=== PATIENT | male | born 1950 | race Caucasian/White ===

== ENCOUNTER 2021-02-21 18:11 | Inpatient (IN) ==
[2021-02-21] MEDS ORDERED: SODIUM CHLORIDE 0.9% 1000ML 2,000 ML IV ONE (18:53)
--- NOTE | 2021-02-21 19:02 | Emergency Department Note ---
Impression & Plan Acute hyperglycemia, Acute hyponatremia ED Provider Note NAME: JAGJIT ARRIAZA AGE: 70 SEX: M : 1950 ARRIVES VIA: Walk-In INFORMANT: Patient ED PROVIDER(S): Brent Avelar DO CHIEF COMPLAINT: hyperglycemia HPI: Patient is a 70-year-old male who presents to the ER for elevated blood sugars. Patient notes that this has been peeing more frequently but believes it is just because it is hot out and he was drinking more fluids. Denies any headache or change in vision. No chest pain or shortness of breath. No nausea, vomiting, or diarrhea. Denies any dysuria, urgency, or frequency. ROS: See above HPI for pertinent positives & negatives. A total of 10 systems reviewed and were otherwise negative. PAST MEDICAL HISTORY:See Below PAST SURGICAL HISTORY:See Below FAMILY HISTORY:See Below SOCIAL HISTORY:See Below HOME MEDICATIONS:See Below ALLERGIES:See Below VITALS:See Below PHYSICAL EXAMINATION: GENERAL: Sitting up in bed, alert, well appearing, well nourished, no distress, non-toxic EYE EXAM: normal conjunctiva. OROPHARYNX: no exudate, no erythema, lips, buccal mucosa, and tongue normal and mucous membranes are moist NECK: supple, no nuchal rigidity, no adenopathy, non-tender LUNGS: Clear to auscultation. Normal chest wall mechanics HEART: no murmurs, S1 normal and S2 normal ABDOMEN: abdomen soft, non-tender, normo-active bowel sounds, no masses, no rebound or guarding. UPPER EXTREMITIES: upper extremities are grossly normal. LOWER EXTREMITIES: No pitting edema. NEURO EXAM: Normal sensorium, cranial nerves II-XII grossly intact, normal speech, no gross weakness of arms, no gross weakness of legs. MEDICAL DECISION MAKING: Patient is a 70-year-old male who presents the ER for elevated blood sugar refer red in by PCP. IV was established blood work was obtained. Labs show no significant leukocytosis or anemia. VBG was unremarkable. BMP with a sodium of 125 which is pseudohyponatremia secondary to the hyperglycemia of 700. LFTs and TSH was unremarkable. Lipase is elevated 1500 but no belly pain. UA was clean. Covid was negative. Patient was given 2 L IV fluids as well as 6 units IV insulin. He was placed on insulin drip. He is updated bedside. Discussed with the hospitalist admitted for further work-up. Triage Nursing notes reviewed. Limited review of prior medical records performed Vital Signs: reviewed and remarkable for HTN Differential diagnosis: Infection, dehydration, metabolic abnormality, hypo/hyperglycemia, electrolyte disturbance, anemia, hypoxia, cardiac sources, intracerebral event, toxicologic, neurologic, as well as other pathologies. ER treatment provided: See below Diagnostics interpreted by me: Cardiac Monitoring: An order was placed for continuous cardiac monitoring. The monitor shows a rate of 62 with sinus rhythm. Laboratory studies: As stated above and show below. Imaging studies: See below Consultation(s): Discussed with the hospitalist for further evaluation Procedures: none Critical Care: I have personally spent 33 minutes of critical care time in the direct management of this patient. This includes bedside care, interpretation of diagnostic studies, and testing, discussion with consultants, patient, and family members, and other required patient management activities. This 33 minutes is in excess of all separately billable procedures. Past Med/Surg History Medical History (Updated 02/22/21 @ 00:06 by Brent Avelar DO) Diverticulosis Dyslipidemia Prediabetes Pulmonary nodule Umbilical hernia Surgical History History of dental surgery Hx of appendectomy Family History Sister Cancer Father Mental disorder Social History (Updated 05/10/19 @ 13:50 by Vida Toure) Smoking Status: Current some day smoker Hx Alcohol Use: No Hx Substance Use: No Preferred Language: Sinhala Communication Ability: Effective Respiratory Medicine Physician Required: No Beliefs That Will Affect Care: None Current Living Situation: Alone Other Information That Helps Us Care for You: No Feels Safe at Home: Yes Safety Concerns: Feels Safe At This Time Assistive Devices: None Allergies Allergies Allergy/AdvReac Type Severity Reaction Status Date / Time No Known Allergies Allergy Unverified 02/21/21 20:17 Home Meds Home Medications Medication Instructions Recorded Confirmed aspirin 81 mg tablet,delayed 81 mg PO DAILY 05/10/19 02/21/21 release atorvastatin 10 mg tablet (Lipitor) 10 mg PO DAILY 05/10/19 02/21/21 omega-3 fatty acids 1,000 mg 1,000 mg PO DAILY 05/10/19 02/21/21 capsule nicotine 21 mg/24 hr daily 1 patch TRANSDERMAL DAILY 02/21/21 02/21/21 transdermal patch oxycodone-acetaminophen 5 mg-325 1 tab PO Q6H PRN 02/21/21 02/21/21 mg tablet (Percocet) Previous Rx's Medication Instructions Recorded albuterol sulfate 90 mcg/actuation 2 puff INH Q6H PRN #18 g 01/06/21 aerosol inhaler (ProAir HFA) bupropion HCl 150 mg 24 hr tablet, 150 mg PO BID #60 tab 01/06/21 extended release tiotropium bromide 2.5 2 puff INH DAILY #4 gm 01/06/21 mcg/actuation mist for inhalation (Spiriva Respimat) Results & Data (ED) Vital Signs Vital Signs - 24 hr 02/21/21 18:39 02/21/21 18:59 02/21/21 19:35 Temperature 36.6 C Temperature Source Skin Pulse Rate 72 Pulse Rate from SpO2 Sensor 72 Respiratory Rate 18 14 Blood Pressure 165/91 H 149/93 H Blood Pressure Mean 115 111 Pulse Oximetry 99 98 96 Oxygen Delivery Method Room Air Sepsis Recent Fever Within 48 Hours No Sepsis New/Unexplained Change in Mental Status No Sepsis Action Taken by Nursing No Action Required 02/21/21 20:00 02/21/21 20:30 02/21/21 21:00 Temperature Temperature Source Pulse Rate 83 70 71 Pulse Rate from SpO2 Sensor 83 68 69 Respiratory Rate 15 17 16 Blood Pressure 137/83 113/74 113/71 Blood Pressure Mean 101 87 85 Pulse Oximetry 98 97 99 Oxygen Delivery Method Sepsis Recent Fever Within 48 Hours Sepsis New/Unexplained Change in Mental Status Sepsis Action Taken by Nursing Laboratory Data Result diagrams: 02/21/21 18:54 02/21/21 18:54 Lab Results 02/21/21 02/21/21 02/21/21 Range/Units 18:45 18:54 18:54 WBC 6.86 (4.8-10.8) K/uL RBC 4.25 L (4.7-6.1) M/uL Hgb 14.4 (14.0-18.0) g/dL POC Hgb (14.0-18.0) g/dl Hct 41.6 L (42-52) % POC Hct (42-52) % MCV 97.9 (80-100) fL MCH 33.9 (25-34) pg MCHC 34.6 (32-36) g/dL RDW Std Deviation 46.0 (36.4-46.3) fL RDW Coeff of [facility] 12.9 (11.5-14.5) % Plt Count 298 (130-400) K/uL MPV 10.1 (7.4-10.4) fL Immature Gran % (Auto) 0.6 % Neut % (Auto) 56.1 % Lymph % (Auto) 28.9 % [place] % (Auto) 10.8 % Eos % (Auto) 3.2 % Baso % (Auto) 0.4 % Neut # (Auto) 3.85 (1.4-6.5) K/uL Lymph # (Auto) 1.98 (1.2-3.4) K/uL [place] # (Auto) 0.74 H (0.11-0.59) K/uL Eos # (Auto) 0.22 (0-0.5) K/uL Baso # (Auto) 0.03 (0-0.2) K/uL Immature Gran # (Auto) 0.04 H (0.00-0.02) K/uL VBG pH (7.36-7.41) VBG pCO2 (38-50) mmHg VBG pO2 mmHg VBG HCO3 mmol/L VBG O2 Saturation % VBG Base Excess mEq/L Barometric Pressure mm/Hg POC Sodium (135-144) mmol/L Sodium 125 L (136-145) mmol/L POC Potassium (3.3-5.0) mmol/L Potassium 4.3 (3.5-5.1) mmol/L POC Chloride (101-112) mmol/L Chloride 93 L (98-107) mmol/L Carbon Dioxide 26 (21-32) mmol/L POC Total CO2 (24-31) mmol/L Anion Gap 6.0 (3-11) POC Anion Gap (16-25) mmol/L POC BUN (7-18) mg/dl BUN 14 (7-18) mg/dl Creatinine 1.20 (0.6-1.4) mg/dl POC Creatinine (0.6-1.3) mg/dl Est Cr Clr Drug Dosing 49.7 ml/min Est GFR ( Amer) 71.1 ml/min Est GFR (Non-Af Amer) 61.3 ml/min BUN/Creatinine Ratio 11.8 (10-20) Glucose 660 H* (70-99) mg/dl POC Glucose > 600 H* (70-99) mg/dl POC Glucose (other) (70-99) mg/dl Osmolality (280-300) mOsm/kg Calcium 9.5 (8.5-10.1) mg/dl POC Ioniz Calcium Lorraine (1.12-1.32) mmol/l Magnesium 2.1 (1.8-2.4) mg/dl Total Bilirubin 0.6 (0.2-1) mg/dl AST 14 L (15-37) U/L ALT 29 (12-78) U/L Alkaline Phosphatase 148 H (45-117) U/L Total Protein 7.8 (6.4-8.2) gm/dl Albumin 3.9 (3.4-5.0) gm/dl Globulin 3.9 (2.5-4.0) gm/dl Albumin/Globulin Ratio 1.0 (0.9-2) Lipase 1546 H (73-393) U/L Beta-Hydroxybutyric Acd 1.68 (0.2-2.81) mg/dl TSH (0.300-4.500) uIu/ml Urine Color Urine Appearance (Clear) Urine pH (4.5-7.5) Ur Specific [place] (1.000-1.030) Urine Protein (Negative) Urine Glucose (UA) (Negative) Urine Ketones (Negative) Urine Blood (Negative) Urine Nitrite (Negative) Urine Bilirubin (Negative) Urine Urobilinogen (Negative) Ur Leukocyte Esterase (Negative) Urine Osmolality (500-800) mOsm/kg Ur Random Sodium mmol/L COVID-19 Eval Order SARS-CoV-2 (PCR) (Negative) 02/21/21 02/21/21 02/21/21 Range/Units 18:54 18:54 19:00 WBC (4.8-10.8) K/uL RBC (4.7-6.1) M/uL Hgb (14.0-18.0) g/dL POC Hgb 14.6 (14.0-18.0) g/dl Hct (42-52) % POC Hct 43 (42-52) % MCV (80-100) fL MCH (25-34) pg MCHC (32-36) g/dL RDW Std Deviation (36.4-46.3) fL RDW Coeff of [facility] (11.5-14.5) % Plt Count (130-400) K/uL MPV (7.4-10.4) fL Immature Gran % (Auto) % Neut % (Auto) % Lymph % (Auto) % [place] % (Auto) % Eos % (Auto) % Baso % (Auto) % Neut # (Auto) (1.4-6.5) K/uL Lymph # (Auto) (1.2-3.4) K/uL [place] # (Auto) (0.11-0.59) K/uL Eos # (Auto) (0-0.5) K/uL Baso # (Auto) (0-0.2) K/uL Immature Gran # (Auto) (0.00-0.02) K/uL VBG pH (7.36-7.41) VBG pCO2 (38-50) mmHg VBG pO2 mmHg VBG HCO3 mmol/L VBG O2 Saturation % VBG Base Excess mEq/L Barometric Pressure mm/Hg POC Sodium 127 L (135-144) mmol/L Sodium (136-145) mmol/L POC Potassium 4.4 (3.3-5.0) mmol/L Potassium (3.5-5.1) mmol/L POC Chloride 89 L (101-112) mmol/L Chloride (98-107) mmol/L Carbon Dioxide (21-32) mmol/L POC Total CO2 23 L (24-31) mmol/L Anion Gap (3-11) POC Anion Gap 20.0 (16-25) mmol/L POC BUN 15 (7-18) mg/dl BUN (7-18) mg/dl Creatinine (0.6-1.4) mg/dl POC Creatinine 0.8 (0.6-1.3) mg/dl Est Cr Clr Drug Dosing ml/min Est GFR ( Amer) ml/min Est GFR (Non-Af Amer) ml/min BUN/Creatinine Ratio (10-20) Glucose (70-99) mg/dl POC Glucose (70-99) mg/dl POC Glucose (other) 674 H* (70-99) mg/dl Osmolality 303 H (280-300) mOsm/kg Calcium (8.5-10.1) mg/dl POC Ioniz Calcium Lorraine 1.24 (1.12-1.32) mmol/l Magnesium (1.8-2.4) mg/dl Total Bilirubin (0.2-1) mg/dl AST (15-37) U/L ALT (12-78) U/L Alkaline Phosphatase (45-117) U/L Total Protein (6.4-8.2) gm/dl Albumin (3.4-5.0) gm/dl Globulin (2.5-4.0) gm/dl Albumin/Globulin Ratio (0.9-2) Lipase (73-393) U/L Beta-Hydroxybutyric Acd (0.2-2.81) mg/dl TSH 2.660 (0.300-4.500) uIu/ml Urine Color Urine Appearance (Clear) Urine pH (4.5-7.5) Ur Specific [place] (1.000-1.030) Urine Protein (Negative) Urine Glucose (UA) (Negative) Urine Ketones (Negative) Urine Blood (Negative) Urine Nitrite (Negative) Urine Bilirubin (Negative) Urine Urobilinogen (Negative) Ur Leukocyte Esterase (Negative) Urine Osmolality (500-800) mOsm/kg Ur Random Sodium mmol/L COVID-19 Eval Order SARS-CoV-2 (PCR) (Negative) 02/21/21 02/21/21 02/21/21 Range/Units 19:30 19:30 19:36 WBC (4.8-10.8) K/uL RBC (4.7-6.1) M/uL Hgb (14.0-18.0) g/dL POC Hgb (14.0-18.0) g/dl Hct (42-52) % POC Hct (42-52) % MCV (80-100) fL MCH (25-34) pg MCHC (32-36) g/dL RDW Std Deviation (36.4-46.3) fL RDW Coeff of [facility] (11.5-14.5) % Plt Count (130-400) K/uL MPV (7.4-10.4) fL Immature Gran % (Auto) % Neut % (Auto) % Lymph % (Auto) % [place] % (Auto) % Eos % (Auto) % Baso % (Auto) % Neut # (Auto) (1.4-6.5) K/uL Lymph # (Auto) (1.2-3.4) K/uL [place] # (Auto) (0.11-0.59) K/uL Eos # (Auto) (0-0.5) K/uL Baso # (Auto) (0-0.2) K/uL Immature Gran # (Auto) (0.00-0.02) K/uL VBG pH 7.36 (7.36-7.41) VBG pCO2 50 (38-50) mmHg VBG pO2 20 mmHg VBG HCO3 27 mmol/L VBG O2 Saturation < 60.0 % VBG Base Excess 1.1 mEq/L Barometric Pressure 731.7 mm/Hg POC Sodium (135-144) mmol/L Sodium (136-145) mmol/L POC Potassium (3.3-5.0) mmol/L Potassium (3.5-5.1) mmol/L POC Chloride (101-112) mmol/L Chloride (98-107) mmol/L Carbon Dioxide (21-32) mmol/L POC Total CO2 (24-31) mmol/L Anion Gap (3-11) POC Anion Gap (16-25) mmol/L POC BUN (7-18) mg/dl BUN (7-18) mg/dl Creatinine (0.6-1.4) mg/dl POC Creatinine (0.6-1.3) mg/dl Est Cr Clr Drug Dosing ml/min Est GFR ( Amer) ml/min Est GFR (Non-Af Amer) ml/min BUN/Creatinine Ratio (10-20) Glucose (70-99) mg/dl POC Glucose (70-99) mg/dl POC Glucose (other) (70-99) mg/dl Osmolality (280-300) mOsm/kg Calcium (8.5-10.1) mg/dl POC Ioniz Calcium Lorraine (1.12-1.32) mmol/l Magnesium (1.8-2.4) mg/dl Total Bilirubin (0.2-1) mg/dl AST (15-37) U/L ALT (12-78) U/L Alkaline Phosphatase (45-117) U/L Total Protein (6.4-8.2) gm/dl Albumin (3.4-5.0) gm/dl Globulin (2.5-4.0) gm/dl Albumin/Globulin Ratio (0.9-2) Lipase (73-393) U/L Beta-Hydroxybutyric Acd (0.2-2.81) mg/dl TSH (0.300-4.500) uIu/ml Urine Color Urine Appearance (Clear) Urine pH (4.5-7.5) Ur Specific [place] (1.000-1.030) Urine Protein (Negative) Urine Glucose (UA) (Negative) Urine Ketones (Negative) Urine Blood (Negative) Urine Nitrite (Negative) Urine Bilirubin (Negative) Urine Urobilinogen (Negative) Ur Leukocyte Esterase (Negative) Urine Osmolality (500-800) mOsm/kg Ur Random Sodium mmol/L COVID-19 Eval Order Covid19 at [facility] SARS-CoV-2 (PCR) NEGATIVE (Negative) 02/21/21 02/21/21 02/21/21 Range/Units 20:10 20:15 20:15 WBC (4.8-10.8) K/uL RBC (4.7-6.1) M/uL Hgb (14.0-18.0) g/dL POC Hgb (14.0-18.0) g/dl Hct (42-52) % POC Hct (42-52) % MCV (80-100) fL MCH (25-34) pg MCHC (32-36) g/dL RDW Std Deviation (36.4-46.3) fL RDW Coeff of [facility] (11.5-14.5) % Plt Count (130-400) K/uL MPV (7.4-10.4) fL Immature Gran % (Auto) % Neut % (Auto) % Lymph % (Auto) % [place] % (Auto) % Eos % (Auto) % Baso % (Auto) % Neut # (Auto) (1.4-6.5) K/uL Lymph # (Auto) (1.2-3.4) K/uL [place] # (Auto) (0.11-0.59) K/uL Eos # (Auto) (0-0.5) K/uL Baso # (Auto) (0-0.2) K/uL Immature Gran # (Auto) (0.00-0.02) K/uL VBG pH (7.36-7.41) VBG pCO2 (38-50) mmHg VBG pO2 mmHg VBG HCO3 mmol/L VBG O2 Saturation % VBG Base Excess mEq/L Barometric Pressure mm/Hg POC Sodium (135-144) mmol/L Sodium (136-145) mmol/L POC Potassium (3.3-5.0) mmol/L Potassium (3.5-5.1) mmol/L POC Chloride (101-112) mmol/L Chloride (98-107) mmol/L Carbon Dioxide (21-32) mmol/L POC Total CO2 (24-31) mmol/L Anion Gap (3-11) POC Anion Gap (16-25) mmol/L POC BUN (7-18) mg/dl BUN (7-18) mg/dl Creatinine (0.6-1.4) mg/dl POC Creatinine (0.6-1.3) mg/dl Est Cr Clr Drug Dosing ml/min Est GFR ( Amer) ml/min Est GFR (Non-Af Amer) ml/min BUN/Creatinine Ratio (10-20) Glucose (70-99) mg/dl POC Glucose 374 H* (70-99) mg/dl POC Glucose (other) (70-99) mg/dl Osmolality (280-300) mOsm/kg Calcium (8.5-10.1) mg/dl POC Ioniz Calcium Lorraine (1.12-1.32) mmol/l Magnesium (1.8-2.4) mg/dl Total Bilirubin (0.2-1) mg/dl AST (15-37) U/L ALT (12-78) U/L Alkaline Phosphatase (45-117) U/L Total Protein (6.4-8.2) gm/dl Albumin (3.4-5.0) gm/dl Globulin (2.5-4.0) gm/dl Albumin/Globulin Ratio (0.9-2) Lipase (73-393) U/L Beta-Hydroxybutyric Acd (0.2-2.81) mg/dl TSH (0.300-4.500) uIu/ml Urine Color Yellow Urine Appearance Clear (Clear) Urine pH 7.0 (4.5-7.5) Ur Specific [place] 1.025 (1.000-1.030) Urine Protein Negative (Negative) Urine Glucose (UA) 3+ H (Negative) Urine Ketones Negative (Negative) Urine Blood Negative (Negative) Urine Nitrite Negative (Negative) Urine Bilirubin Negative (Negative) Urine Urobilinogen Negative (Negative) Ur Leukocyte Esterase Negative (Negative) Urine Osmolality (500-800) mOsm/kg Ur Random Sodium 47 mmol/L COVID-19 Eval Order SARS-CoV-2 (PCR) (Negative) 02/21/21 Range/Units 20:15 WBC (4.8-10.8) K/uL RBC (4.7-6.1) M/uL Hgb (14.0-18.0) g/dL POC Hgb (14.0-18.0) g/dl Hct (42-52) % POC Hct (42-52) % MCV (80-100) fL MCH (25-34) pg MCHC (32-36) g/dL RDW Std Deviation (36.4-46.3) fL RDW Coeff of [facility] (11.5-14.5) % Plt Count (130-400) K/uL MPV (7.4-10.4) fL Immature Gran % (Auto) % Neut % (Auto) % Lymph % (Auto) % [place] % (Auto) % Eos % (Auto) % Baso % (Auto) % Neut # (Auto) (1.4-6.5) K/uL Lymph # (Auto) (1.2-3.4) K/uL [place] # (Auto) (0.11-0.59) K/uL Eos # (Auto) (0-0.5) K/uL Baso # (Auto) (0-0.2) K/uL Immature Gran # (Auto) (0.00-0.02) K/uL VBG pH (7.36-7.41) VBG pCO2 (38-50) mmHg VBG pO2 mmHg VBG HCO3 mmol/L VBG O2 Saturation % VBG Base Excess mEq/L Barometric Pressure mm/Hg POC Sodium (135-144) mmol/L Sodium (136-145) mmol/L POC Potassium (3.3-5.0) mmol/L Potassium (3.5-5.1) mmol/L POC Chloride (101-112) mmol/L Chloride (98-107) mmol/L Carbon Dioxide (21-32) mmol/L POC Total CO2 (24-31) mmol/L Anion Gap (3-11) POC Anion Gap (16-25) mmol/L POC BUN (7-18) mg/dl BUN (7-18) mg/dl Creatinine (0.6-1.4) mg/dl POC Creatinine (0.6-1.3) mg/dl Est Cr Clr Drug Dosing ml/min Est GFR ( Amer) ml/min Est GFR (Non-Af Amer) ml/min BUN/Creatinine Ratio (10-20) Glucose (70-99) mg/dl POC Glucose (70-99) mg/dl POC Glucose (other) (70-99) mg/dl Osmolality (280-300) mOsm/kg Calcium (8.5-10.1) mg/dl POC Ioniz Calcium Lorraine (1.12-1.32) mmol/l Magnesium (1.8-2.4) mg/dl Total Bilirubin (0.2-1) mg/dl AST (15-37) U/L ALT (12-78) U/L Alkaline Phosphatase (45-117) U/L Total Protein (6.4-8.2) gm/dl Albumin (3.4-5.0) gm/dl Globulin (2.5-4.0) gm/dl Albumin/Globulin Ratio (0.9-2) Lipase (73-393) U/L Beta-Hydroxybutyric Acd (0.2-2.81) mg/dl TSH (0.300-4.500) uIu/ml Urine Color Urine Appearance (Clear) Urine pH (4.5-7.5) Ur Specific [place] (1.000-1.030) Urine Protein (Negative) Urine Glucose (UA) (Negative) Urine Ketones (Negative) Urine Blood (Negative) Urine Nitrite (Negative) Urine Bilirubin (Negative) Urine Urobilinogen (Negative) Ur Leukocyte Esterase (Negative) Urine Osmolality 458 L (500-800) mOsm/kg Ur Random Sodium mmol/L COVID-19 Eval Order SARS-CoV-2 (PCR) (Negative) Administered Medications Dextrose (Dextrose 50% 50 Ml Syringe) 25 - 50 ml IV UD PRN; Protocol PRN Reason: Hypoglycemia Protocol Stop: 03/23/21 19:14 Last Admin: 02/21/21 22:37 Dose: 50 ml Documented by: [id number] Insulin Human Regular 250 (units/ Sodium Chloride) 250 mls @ 2.2 mls/hr IV .Q24H LYLE; Protocol Stop: 03/23/21 19:14 Last Titration: 02/21/21 22:59 Dose: 0.6 units/hr, 0.6 mls/hr Documented by: [id number] Cosigned by: [id number] Titration: 02/21/21 22:30 Dose: 0 units/hr, 0 mls/hr Documented by: [id number] Cosigned by: [id number] Titration: 02/21/21 21:30 Dose: 2.2 units/hr, 2.2 mls/hr Documented by: [id number] Cosigned by: [id number] Admin: 02/21/21 20:15 Dose: 2.2 units/hr, 2.2 mls/hr Documented by: [id number] Cosigned by: [id number] Sodium Chloride (Nss 1000ml) 1,000 mls @ 100 mls/hr IV .Q10H ONE Stop: 02/22/21 06:01 Last Admin: 02/21/21 21:00 Dose: 100 mls/hr Documented by: [id number] Insulin Aspart (Insulin Aspart 100 Units/Ml 3 Ml Pen) 0 units SC ACHS LYLE Stop: 03/23/21 20:59 Last Admin: 02/21/21 23:25 Dose: Not Given Documented by: [id number] Discontinued Medications Sodium Chloride (Nss 1000ml) 2,000 mls @ 999 mls/hr IV .Q2H1M ONE Stop: 02/21/21 20:53 Last Infusion: 02/21/21 21:00 Dose: 0 mls/hr Documented by: [id number] Admin: 02/21/21 19:00 Dose: 999 mls/hr Documented by: [id number] Potassium Chloride (K Sammy / Wtr) 10 meq in 100 mls @ 100 mls/hr IV Q1H LYLE Stop: 02/21/21 21:14 Last Infusion: 02/21/21 21:52 Dose: 0 mls/hr Documented by: [id number] Admin: 02/21/21 20:38 Dose: 100 mls/hr Documented by: [id number] Infusion: 02/21/21 20:34 Dose: 100 mls/hr Documented by: [id number] Admin: 02/21/21 19:34 Dose: 100 mls/hr Documented by: [id number] Insulin Human Regular (Novolin-R Insulin Per Unit Charge) 6 units IV NOW STA Stop: 02/21/21 19:04 Last Admin: 02/21/21 19:33 Dose: 6 units Documented by: [id number] Cosigned by: [id number] Lisinopril (Lisinopril 2.5 Mg Tab) 2.5 mg PO ONE ONE Stop: 02/21/21 20:03 Last Admin: 02/21/21 21:39 Dose: 2.5 mg Documented by: [id number] Flakita (Insulin Protocol Goal Range ) 1 ea N/A ONE ONE Stop: 02/21/21 19:04 Last Admin: 02/21/21 20:19 Dose: Not Given Documented by: [id number] Flakita (Stat Iv Infusion Titration Per Protocol) 1 ea N/A NOW STA Stop: 02/21/21 19:04 Last Admin: 02/21/21 20:51 Dose: Not Given Documented by: [id number] Flakita (Severe Stress Level ) 1 ea N/A ONE ONE Stop: 02/21/21 19:04 Last Admin: 02/21/21 20:19 Dose: Not Given Documented by: [id number] Potassium Chloride (Potassium Chloride Crtab 20 Meq Tabcr) 40 meq PO NOW STA Stop: 02/21/21 19:04 Last Admin: 02/21/21 19:34 Dose: 40 meq Documented by: [id number] Discharge Plan Visit Data Chief Complaint: Hyperglycemia Stated Complaint: HIGH BLOOD PRESSURE ED Provider: Brent Avelar Discharge Problem: Acute hyperglycemia, Acute hyponatremia Patient Disposition: Admitted As Inpatient Discharge Instructions Interventions: ED Discharge Assessment Last Done: 02/21/21 21:57
[2021-02-21] MEDS ORDERED: STAT IV Infusion **Titration per Protocol STA (19:03)
[2021-02-21] MEDS ORDERED: POTASSIUM CHLORIDE CRTAB 20 MEQ TABCR PO STA (19:03)
[2021-02-21] MEDS ORDERED: INSULIN PROTOCOL GOAL RANGE ONE (19:03)
[2021-02-21] MEDS ORDERED: SEVERE STRESS LEVEL ONE (19:03)
[2021-02-21] MEDS ORDERED: NovoLIN-R INSULIN PER UNIT CHARGE IV STA (19:03)
[2021-02-21 19:06] LABS: Basophils # (auto) 0.03 K/uL (0-0.2); Basophils % (auto) 0.4 %; Eosinophils # (auto) 0.22 K/uL (0-0.5); Eosinophils % (auto) 3.2 %; Hematocrit (blood only) 41.6 % (42-52); Hemoglobin 14.4 g/dL (14.0-18.0); Immature Granulocytes # (auto) 0.04 K/uL (0.00-0.02); Immature Granulocytes % (auto) 0.6 %; Lymphocytes # (auto) 1.98 K/uL (1.2-3.4); Lymphocytes % (auto) 28.9 %; Mean Corpuscular Hemoglobin 33.9 pg (25-34); Mean Corpuscular Hgb Conc 34.6 g/dL (32-36); Mean Corpuscular Volume 97.9 fL (80-100); Mean Platelet Volume 10.1 fL (7.4-10.4); Monocytes # (auto) 0.74 K/uL (0.11-0.59); Monocytes % (auto) 10.8 %; Neutrophils # (auto) 3.85 K/uL (1.4-6.5); Neutrophils % (auto) 56.1 %; Platelet Count 298 K/uL (130-400); RDW Coefficient of Variation 12.9 % (11.5-14.5); Red Blood Count 4.25 M/uL (4.7-6.1); White Blood Count 6.86 K/uL (4.8-10.8)
[2021-02-21 19:14] LABS: iSTAT Creatinine 0.8 mg/dl (0.6-1.3); iSTAT Hemoglobin 14.6 g/dl (14.0-18.0); iSTAT Ionized Calcium 1.24 mmol/l (1.12-1.32); iSTAT Potassium 4.4 mmol/L (3.3-5.0)
[2021-02-21] MEDS ORDERED: GLUCAGON FOR INJ 1 MG VIAL IM PRN (19:15)
[2021-02-21] MEDS ORDERED: CARBOHYDRATES FOR HYPOGLYCEMIA PO PRN (19:15)
[2021-02-21] MEDS ORDERED: INSULIN REGULAR 250 UNITS in SODIUM CHLORIDE 0.9% 247.5 ML IV SCH (19:15)
[2021-02-21] MEDS ORDERED: GLUCOSE 40% GEL 15 GM TUBE PO PRN (19:15)
[2021-02-21] MEDS ORDERED: DEXTROSE 50% 50 ML SYRINGE IV PRN (19:15)
[2021-02-21] MEDS ORDERED: GLUCOSE 10 TABS/TUBE PO PRN (19:15)
[2021-02-21 19:32] LABS: Albumin Level 3.9 gm/dl (3.4-5.0); BUN Creatinine Ratio 11.8 (10-20); Calcium 9.5 mg/dl (8.5-10.1); Creatinine Clr Calc Pharmacy 49.7 ml/min; Est GFR (African American) 71.1 ml/min; Est GFR (Non-African American) 61.3 ml/min; Magnesium 2.1 mg/dl (1.8-2.4); Potassium 4.3 mmol/L (3.5-5.1)
[2021-02-21] MEDS: POTASSIUM CHLORIDE / WTR 10 MEQ/100 ML PLCT IV SCH ×2 (19:34→20:38)
[2021-02-21 19:36] LABS: Bilirubin,Total 0.6 mg/dl (0.2-1); Globulin 3.9 gm/dl (2.5-4.0); Total Protein 7.8 gm/dl (6.4-8.2)
[2021-02-21 19:44] LABS: Beta-Hydroxybutyrate 1.68 mg/dl (0.2-2.81)
[2021-02-21 19:47] LABS: Base Excess VBG 1.1 mEq/L; HCO3 VBG 27 mmol/L; PCO2 VBG 50 mmHg (38-50); PO2 VBG 20 mmHg; pH VBG 7.36 (7.36-7.41)
[2021-02-21 19:48] LABS: Oxygen Saturation VBG < 60.0 %
[2021-02-21] MEDS ORDERED: SODIUM CHLORIDE 0.9% 1000ML 1,000 ML IV ONE (20:02)
[2021-02-21] MEDS ORDERED: lisinopril 2.5 MG TAB PO ONE (20:02)
--- NOTE | 2021-02-21 20:27 | History & Physical Report ---
Date of Service February 21, 2021 Assessment & Plan (1) Hyperglycemic crisis in diabetes mellitus: Plan: Hyperglycemic hyperosmolar syndrome New diagnosis of DM2 given current hemoglobin A1c of 18 history prediabetes with last hemoglobin A1c of 6.4 from 2019 Situational hypertension COPD, history pulmonary nodules, stable disease patient follows with [facility] hyperlipidemia, on statin Rx ongoing tobacco abuse. [facility] IV insulin Pharmacy glycemic consult Re: New diagnosis DM2 DM education Initiate lisinopril for BP control and nephroprotective potential. Nicotine replacement therapy as needed DVT prophylaxis per Lovenox subcu Full code Text document was generated using [employer] voice recognition software. It may contain grammatical or spelling errors. Kindly contact undersigned for clarification of any documentation item in question. History of Present Illness Chief Complaint: High sugars, abnormal outpatient blood work Primary Care Pr ovider: Celsa Mcgovern, History obtained from patient, friend , and records. Medical history significant for COPD, history pulmonary nodules, hyperlipidemia, prediabetes as per records, ongoing tobacco abuse. Patient being more frequently the last few weeks. No chest pain, no S OB, no abdominal pain. Appetite okay. Outpatient labs ordered by PCP today. Serum glucose noted to be 700s. Hemoglobin A1c noted to be 18. Patient directed to the ER by PCP. IV insulin initiated at the ER. 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 Allergies Allergy/AdvReac Type Severity Reaction Status Date / Time No Known Allergies Allergy Unverified 02/21/21 20:17 Home Medications Medication Instructions Recorded Confirmed Type aspirin 81 mg tablet,delayed 81 mg PO DAILY 05/10/19 02/21/21 History release atorvastatin 10 mg tablet (Lipitor) 10 mg PO DAILY 05/10/19 02/21/21 History omega-3 fatty acids 1,000 mg 1,000 mg PO DAILY 05/10/19 02/21/21 History capsule albuterol sulfate 90 mcg/actuation 2 puff INH Q6H PRN #18 g 01/06/21 02/21/21 Rx aerosol inhaler (ProAir HFA) bupropion HCl 150 mg 24 hr tablet, 150 mg PO BID #60 tab 01/06/21 02/21/21 Rx extended release tiotropium bromide 2.5 2 puff INH DAILY #4 gm 01/06/21 02/21/21 Rx mcg/actuation mist for inhalation (Spiriva Respimat) nicotine 21 mg/24 hr daily 1 patch TRANSDERMAL DAILY 02/21/21 02/21/21 History transdermal patch oxycodone-acetaminophen 5 mg-325 1 tab PO Q6H PRN 02/21/21 02/21/21 History mg tablet (Percocet) Past Med/Surg History Medical History (Updated 02/22/21 @ 10:33 by Erik Suresh MD) Diverticulosis Dyslipidemia Hyperglycemic crisis in diabetes mellitus Prediabetes Pulmonary nodule Umbilical hernia Surgical History History of dental surgery Hx of appendectomy Family History Sister Cancer Father Mental disorder Social History (Updated 05/10/19 @ 13:50 by Vida Toure) Smoking Status: Current some day smoker Hx Alcohol Use: No Hx Substance Use: No Preferred Language: [place] Communication Ability: Effective Plant Maintenance Supervisor Required: No Beliefs That Will Affect Care: None marital status: Single Current Living Situation: Alone Other Information That Helps Us Care for You: No Feels Safe at Home: Yes Safety Concerns: Feels Safe At This Time Assistive Devices: None Review of Systems Review of Systems: As per HPI, all 10 systems reviewed, all other ROS negative Physical Exam Physical Exam: GENERAL: Comfortable, pleasant, slightly hard of hearing, no respiratory distress SKIN: Normal color, warm HEENT: Newell palpebral conjunctivae, no ptosis, dry buccal mucosa NECK : Supple, no tenderness CHEST : Decreased breath sounds, no tenderness HEART : RRR, no obvious murmurs ABDOMEN: Some distention, nontender EXTREMITIES : No LE swelling/tenderness, no other conspicuous deformities noted NEUROLOGIC : Coherent, no facial asymmetry, slightly hard of hearing, no other gross focality Results & Data Results & Data ([facility]) Vital Signs (Past 12 Hours) Vital Signs Temp Pulse Resp BP Pulse Ox 02/21/21 20:00 83 15 137/83 98 02/21/21 19:35 72 14 149/93 H 96 02/21/21 18:59 98 02/21/21 18:39 36.6 C 18 165/91 H 99 Laboratory Results Laboratory Results WBC 6.86 K/uL (4.8-10.8) 02/21/21 18:54 RBC 4.25 M/uL (4.7-6.1) L 02/21/21 18:54 Hgb 14.4 g/dL (14.0-18.0) 02/21/21 18:54 POC Hgb 14.6 g/dl (14.0-18.0) 02/21/21 19:00 Hct 41.6 % (42-52) L 02/21/21 18:54 POC Hct 43 % (42-52) 02/21/21 19:00 MCV 97.9 fL (80-100) 02/21/21 18:54 MCH 33.9 pg (25-34) 02/21/21 18:54 MCHC 34.6 g/dL (32-36) 02/21/21 18:54 RDW Std Deviation 46.0 fL (36.4-46.3) 02/21/21 18:54 RDW Coeff of Duke 12.9 % (11.5-14.5) 02/21/21 18:54 Plt Count 298 K/uL (130-400) 02/21/21 18:54 MPV 10.1 fL (7.4-10.4) 02/21/21 18:54 Immature Gran % (Auto) 0.6 % 02/21/21 18:54 Neut % (Auto) 56.1 % 02/21/21 18:54 Lymph % (Auto) 28.9 % 02/21/21 18:54 [place] % (Auto) 10.8 % 02/21/21 18:54 Eos % (Auto) 3.2 % 02/21/21 18:54 Baso % (Auto) 0.4 % 02/21/21 18:54 Neut # (Auto) 3.85 K/uL (1.4-6.5) 02/21/21 18:54 Lymph # (Auto) 1.98 K/uL (1.2-3.4) 02/21/21 18:54 [place] # (Auto) 0.74 K/uL (0.11-0.59) H 02/21/21 18:54 Eos # (Auto) 0.22 K/uL (0-0.5) 02/21/21 18:54 Baso # (Auto) 0.03 K/uL (0-0.2) 02/21/21 18:54 Immature Gran # (Auto) 0.04 K/uL (0.00-0.02) H 02/21/21 18:54 VBG pH 7.36 (7.36-7.41) 02/21/21 19:36 VBG pCO2 50 mmHg (38-50) 02/21/21 19:36 VBG pO2 20 mmHg 02/21/21 19:36 VBG HCO3 27 mmol/L 02/21/21 19:36 VBG O2 Saturation < 60.0 % 02/21/21 19:36 VBG Base Excess 1.1 mEq/L 02/21/21 19:36 Barometric Pressure 731.7 mm/Hg 02/21/21 19:36 POC Sodium 127 mmol/L (135-144) L 02/21/21 19:00 Sodium 125 mmol/L (136-145) L 02/21/21 18:54 POC Potassium 4.4 mmol/L (3.3-5.0) 02/21/21 19:00 Potassium 4.3 mmol/L (3.5-5.1) 02/21/21 18:54 POC Chloride 89 mmol/L (101-112) L 02/21/21 19:00 Chloride 93 mmol/L (98-107) L 02/21/21 18:54 Carbon Dioxide 26 mmol/L (21-32) 02/21/21 18:54 POC Total CO2 23 mmol/L (24-31) L 02/21/21 19:00 Anion Gap 6.0 (3-11) 02/21/21 18:54 POC Anion Gap 20.0 mmol/L (16-25) 02/21/21 19:00 POC BUN 15 mg/dl (7-18) 02/21/21 19:00 BUN 14 mg/dl (7-18) 02/21/21 18:54 Creatinine 1.20 mg/dl (0.6-1.4) 02/21/21 18:54 POC Creatinine 0.8 mg/dl (0.6-1.3) 02/21/21 19:00 Est Cr Clr Drug Dosing 49.7 ml/min 02/21/21 18:54 Est GFR ( Amer) 71.1 ml/min 02/21/21 18:54 Est GFR (Non-Af Amer) 61.3 ml/min 02/21/21 18:54 BUN/Creatinine Ratio 11.8 (10-20) 02/21/21 18:54 Glucose 660 mg/dl (70-99) H* 02/21/21 18:54 POC Glucose 374 mg/dl (70-99) H* 02/21/21 20:10 POC Glucose (other) 674 mg/dl (70-99) H* 02/21/21 19:00 Calcium 9.5 mg/dl (8.5-10.1) 02/21/21 18:54 POC Ioniz Calcium [place]raine 1.24 mmol/l (1.12-1.32) 02/21/21 19:00 Magnesium 2.1 mg/dl (1.8-2.4) 02/21/21 18:54 Total Bilirubin 0.6 mg/dl (0.2-1) 02/21/21 18:54 AST 14 U/L (15-37) L 02/21/21 18:54 ALT 29 U/L (12-78) 02/21/21 18:54 Alkaline Phosphatase 148 U/L (45-117) H 02/21/21 18:54 Total Protein 7.8 gm/dl (6.4-8.2) 02/21/21 18:54 Albumin 3.9 gm/dl (3.4-5.0) 02/21/21 18:54 Globulin 3.9 gm/dl (2.5-4.0) 02/21/21 18:54 Albumin/Globulin Ratio 1.0 (0.9-2) 02/21/21 18:54 Lipase 1546 U/L (73-393) H 02/21/21 18:54 Beta-Hydroxybutyric Acd 1.68 mg/dl (0.2-2.81) 02/21/21 18:54 COVID-19 Eval Order Covid19 at [facility] 02/21/21 19:30
[2021-02-21] MEDS ORDERED: PHARMACY GLYCEMIC MGMT CONSULT SCH (20:32)
[2021-02-21 20:50] LABS: Appearance Urine Clear (Clear); Bilirubin Urine Negative (Negative); Blood Urine Negative (Negative); Color Urine Yellow; Glucose Urine UA 3+ (Negative); Ketones Urine Negative (Negative); Leukocyte Esterase Urine Negative (Negative); Nitrite Urine Negative (Negative); Protein Urine Negative (Negative); Specific Gravity Urine 1.025 (1.000-1.030); Urobilinogen Urine Negative (Negative)
[2021-02-21] MEDS ORDERED: LEVALBUTEROL 1.25MG/0.5ML NEB INH PRN (22:18)
[2021-02-21] MEDS ORDERED: ACETAMINOPHEN 325 MG TAB PO PRN (22:18)
[2021-02-21] MEDS ORDERED: IPRATROPIUM BROMIDE NEB SOLN 0.02% 2.5 ML VIAL INH PRN (22:18)
[2021-02-21] MEDS ORDERED: XOPENEX/ATROVENT 1.25mg/0.5MG NEB COMBO NEB PRN (22:18)
[2021-02-21] MEDS ORDERED: oxyCODONE/ACETAMINOPHEN 5mg/325mg TAB PO PRN (22:18)
[2021-02-21] MEDS ORDERED: PROMETHAZINE HCL 12.5 MG in SODIUM CHLORIDE 0.9% 50 ML IV PRN (22:18)
[2021-02-21] MEDS: INSULIN ASPART 100 UNITS/ML 3 ML PEN SC SCH (23:25)
[2021-02-22] MEDS: buPROPion XL 150 MG TABCR PO SCH ×3 (00:08→21:23)
[2021-02-22] MEDS ORDERED: NSS + 20MEQ KCL 20 MEQ/1,000 ML BAG IV ONE (06:00)
[2021-02-22 06:48] LABS: Basophils # (auto) 0.03 K/uL (0-0.2); Basophils % (auto) 0.3 %; Eosinophils # (auto) 0.28 K/uL (0-0.5); Hematocrit (blood only) 35.1 % (42-52); Hemoglobin 12.4 g/dL (14.0-18.0); Immature Granulocytes # (auto) 0.04 K/uL (0.00-0.02); Immature Granulocytes % (auto) 0.4 %; Lymphocytes # (auto) 2.23 K/uL (1.2-3.4); Lymphocytes % (auto) 24.3 %; Mean Corpuscular Hemoglobin 34.2 pg (25-34); Mean Corpuscular Hgb Conc 35.3 g/dL (32-36); Mean Corpuscular Volume 96.7 fL (80-100); Mean Platelet Volume 9.7 fL (7.4-10.4); Monocytes % (auto) 6.5 %; Neutrophils # (auto) 6.01 K/uL (1.4-6.5); Neutrophils % (auto) 65.5 %; Platelet Count 240 K/uL (130-400); RDW Coefficient of Variation 12.8 % (11.5-14.5); RDW Standard Deviation 44.7 fL (36.4-46.3); Red Blood Count 3.63 M/uL (4.7-6.1); White Blood Count 9.19 K/uL (4.8-10.8)
[2021-02-22 07:36] LABS: BUN Creatinine Ratio 15.1 (10-20); Calcium 8.6 mg/dl (8.5-10.1); Creatinine Clr Calc Pharmacy 104.7 ml/min; Est GFR (African American) 120.6 ml/min; Potassium 3.9 mmol/L (3.5-5.1)
[2021-02-22] MEDS ORDERED: PNEUMOCOCCAL Polysaccharide Vaccine 25mcg/0.5mL vial/Syr IM ONE (08:00)
[2021-02-22] MEDS ORDERED: INSULIN GLARGINE SOLOSTAR 100 UNITS/ML 3 ML PEN SC ONE (08:00)
[2021-02-22] MEDS: ASPIRIN 81 MG ECTAB PO SCH (08:11)
[2021-02-22] MEDS: ATORVASTATIN 10 MG TAB PO SCH (08:11)
[2021-02-22] MEDS: UMECLIDINIUM BROMIDE 62.5MCG/BLISTER 7 PUFFS/INHALER INH SCH (08:12)
[2021-02-22] MEDS: ENOXAPARIN INJ 40 MG/0.4 ML SYR SQ SCH (08:13)
--- NOTE | 2021-02-22 08:50 | Pharmacy Report ---
Pharmacy Glycemic Short Note 2 - Date of Service February 22, 2021 - Glycemic Short BSG Results (Last 24 hours): 02/21/21 02/21/21 02/21/21 18:45 18:54 19:00 Glucose 660 H* POC Glucose > 600 H* POC Glucose (other) 674 H* 02/21/21 02/21/21 02/21/21 20:10 21:25 22:29 Glucose POC Glucose 374 H* 337 H* 83 POC Glucose (other) 02/21/21 02/21/21 02/22/21 22:31 22:57 00:03 Glucose POC Glucose 84 165 H 129 H POC Glucose (other) 02/22/21 02/22/21 02/22/21 01:05 03:08 05:04 Glucose POC Glucose 173 H 174 H 183 H POC Glucose (other) 02/22/21 02/22/21 02/22/21 06:13 06:24 07:06 Glucose 192 H POC Glucose 189 H 176 H POC Glucose (other) 02/22/21 08:04 Glucose POC Glucose 167 H POC Glucose (other) OUTPATIENT ANTIDIABETIC REGIMEN: * N/A ASSESSMENT: * Patient admitted with severe hyperglycemia without metabolic abnormalities. * Insulin infusion ran overnight at less than 1 unit/hr. * Give Lantus 20 units now (1.5 x 0.6 units/hr x 24 hours) and stop insulin infusion ~6 hours after Lantus administration. * Start Novolog stress of 3 for now. Add overnight checks to ensure 24 hour blood glucose control. PLAN FOR INPATIENT GLYCEMIC CONTROL: * Basal insulin * Lantus 20 units SQ x 1 then reassess * Bolus insulin * NovoLog per scale ACHS or Q6hrs while NPO * Goal Range: Low 110 mg/dL - High 140 mg/dL * Correction Factor: 25 mg/dL/unit * Nutritional / Prandial insulin per carb ratio of 1 unit per 9 grams CHO consumed PLAN FOR DISCHARGE: * TBD - HbA1C ordered
[2021-02-22] MEDS: INSULIN ASPART 100 UNITS/ML 3 ML PEN SC SCH ×5 (10:17→23:57)
[2021-02-22] MEDS ORDERED: INSULIN ASPART 100 UNITS/ML 3 ML PEN SC ONE (12:30)
[2021-02-22] MEDS ORDERED: DC IV INSULIN INFUSION 1 EA DEVI ONE (15:00)
--- NOTE | 2021-02-22 15:50 | Hospitalist Progress Note ---
Date of Service February 22, 2021 Assessment & Plan (1) Hyperglycemic crisis in diabetes mellitus: Plan: Hyperglycemic hyperosmolar syndrome DM II-- Uncontrolled, New Diagnosis New diagnosis of DM2 given current hemoglobin A1c of 18 history prediabetes with last hemoglobin A1c of 6.4 from 2019 HbA1C ON 02/21/21 IS 18.0 on outpatient labs Continue Insulin drip Transition to SQ insulin as able Monitor blood glucose levels Appreciate pharmacy's help in managing nurse informatics educator consulted Situational hypertension BP stable Monitor Started on lisinopril COPD H/O Pulmonary nodules No signs of Exacerbation Follows with [facility] [place] [facility] Hyperlipidemia on Lipitor 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 DVT Px: Lovenox SQ Code Status Full code Admission and Anticipated Discharge Date Admission Date: February 21, 2021 Subjective Patient is seen and examined at bedside Eager to get discharged Offers no complaints On insulin drip Denies chest pain, shortness of breath, dizziness, nausea, abdominal pain Review of Systems Review of Systems: All systems reviewed & are unremarkable except as noted in Subjective Physical Exam Physical Exam: Physical Exam: Vitals signs as noted above General Appearance:Thin, frail, no apparent distress Head: normocephalic, Atraumatic Eyes: normal inspection, EOMI Neck: supple, Trachea midline Respiratory/Chest: Normal breath sounds, CTA Cardiovascular: S1, S2, No murmur Abdomen/GI:Soft, Non tender, Bowel sounds present Extremities/Musculoskeletal:normal inspection, no edema Neurologic/Psych:AAOX3, grossly no focal neurological deficits Skin: normal color, warm Results & Data Results & Data ([facility]) Vital Signs (Past 12 Hours) Vital Signs Temp Pulse Resp BP Pulse Ox 02/22/21 07:26 37.0 C 60 16 104/65 97 Laboratory Results Short CBC 02/21/21 02/22/21 Range/Units 18:54 06:24 WBC 6.86 9.19 (4.8-10.8) K/uL Hgb 14.4 12.4 L (14.0-18.0) g/dL Hct 41.6 L 35.1 L (42-52) % Plt Count 298 240 (130-400) K/uL BMP 02/21/21 02/22/21 18:54 06:24 Sodium 125 L 135 L D Potassium 4.3 3.9 Chloride 93 L 108 H Carbon Dioxide 26 22 BUN 14 9 D Creatinine 1.20 0.58 L D Glucose 660 H* 192 H Calcium 9.5 8.6 Liver Function 02/21/21 Range/Units 18:54 Total Bilirubin 0.6 (0.2-1) mg/dl AST 14 L (15-37) U/L ALT 29 (12-78) U/L Alkaline Phosphatase 148 H (45-117) U/L Albumin 3.9 (3.4-5.0) gm/dl Urine 02/21/21 Range/Units 20:15 Urine Color Yellow Urine Appearance Clear (Clear) Urine pH 7.0 (4.5-7.5) Ur Specific [place] 1.025 (1.000-1.030) Urine Protein Negative (Negative) Urine Glucose (UA) 3+ H (Negative)
[2021-02-22] MEDS: lisinopril 2.5 MG TAB PO SCH (21:22)
[2021-02-23] MEDS: INSULIN ASPART 100 UNITS/ML 3 ML PEN SC SCH ×5 (03:58→21:45)
[2021-02-23 08:10] LABS: Hematocrit (blood only) 38.8 % (42-52); Hemoglobin 13.1 g/dL (14.0-18.0); Mean Corpuscular Hemoglobin 33.6 pg (25-34); Mean Corpuscular Hgb Conc 33.8 g/dL (32-36); Mean Corpuscular Volume 99.5 fL (80-100); Mean Platelet Volume 9.7 fL (7.4-10.4); Platelet Count 261 K/uL (130-400); RDW Coefficient of Variation 13.3 % (11.5-14.5); RDW Standard Deviation 48.2 fL (36.4-46.3)
[2021-02-23 08:26] LABS: BUN Creatinine Ratio 15.4 (10-20); Calcium 8.8 mg/dl (8.5-10.1); Est GFR (African American) 108.5 ml/min; Est GFR (Non-African American) 93.6 ml/min; Potassium 3.5 mmol/L (3.5-5.1)
[2021-02-23] MEDS ORDERED: INSULIN GLARGINE SOLOSTAR 100 UNITS/ML 3 ML PEN SC ONE ×2 (09:00)
--- NOTE | 2021-02-23 09:03 | Hospitalist Progress Note ---
Date of Service February 23, 2021 Assessment & Plan (1) Hyperglycemic crisis in diabetes mellitus: Plan: Hyperglycemic hyperosmolar syndrome DM II-- Uncontrolled, New Diagnosis New diagnosis of DM2 given current hemoglobin A1c of 18 history prediabetes with last hemoglobin A1c of 6.4 from 2019 HbA1C ON 02/21/21 IS 18.0 on outpatient labs Insulin drip discontinued Continue Insulin therapy Monitor blood glucose levels Appreciate pharmacy's help in managing patient educator consulted-pending Recheck HbA1C Situational hypertension BP stable Monitor Continue lisinopril COPD H/O Pulmonary nodules No signs of Exacerbation [place]s [place] [facility] [place] Hyperlipidemia on Lipitor 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 DVT Px: Lovenox SQ Code Status Full code Admission and Anticipated Discharge Date Admission Date: February 21, 2021 Subjective Patient is seen and examined at bedside Polyuria, polydipsia resolved No new complaints Denies chest pain, shortness of breath, dizziness, nausea, abdominal pain Off insulin drip Eager to get discharged Review of Systems Review of Systems: All systems reviewed & are unremarkable except as noted in Subjective Physical Exam Physical Exam: Physical Exam: Vitals signs as noted above General Appearance:Thin, frail, no apparent distress Head: normocephalic, Atraumatic Eyes: normal inspection, EOMI Neck: supple, Trachea midline Respiratory/Chest: Normal breath sounds, CTA Cardiovascular: S1, S2, No murmur Abdomen/GI:Soft, Non tender, Bowel sounds present Extremities/Musculoskeletal:normal inspection, no edema Neurologic/Psych:AAOX3, grossly no focal neurological deficits Skin: normal color, warm Results & Data Results & Data ([facility]) Vital Signs (Past 12 Hours) Vital Signs Temp Pulse Resp BP Pulse Ox 02/23/21 05:46 36.6 C 64 16 111/64 98 02/22/21 22:36 36.7 C 88 16 126/72 93 Laboratory Results Short CBC 02/23/21 Range/Units 07:31 WBC 6.80 (4.8-10.8) K/uL Hgb 13.1 L (14.0-18.0) g/dL Hct 38.8 L (42-52) % Plt Count 261 (130-400) K/uL BMP 02/23/21 07:31 Sodium 137 Potassium 3.5 Chloride 108 H Carbon Dioxide 25 BUN 12 Creatinine 0.75 Glucose 136 H Calcium 8.8
[2021-02-23] MEDS: UMECLIDINIUM BROMIDE 62.5MCG/BLISTER 7 PUFFS/INHALER INH SCH (09:24)
[2021-02-23] MEDS: ENOXAPARIN INJ 40 MG/0.4 ML SYR SQ SCH (09:24)
[2021-02-23] MEDS: ASPIRIN 81 MG ECTAB PO SCH (09:25)
[2021-02-23] MEDS: buPROPion XL 150 MG TABCR PO SCH ×2 (09:25→21:43)
[2021-02-23] MEDS: ATORVASTATIN 10 MG TAB PO SCH (09:25)
--- NOTE | 2021-02-23 09:46 | Pharmacy Report ---
Pharmacy Glycemic Short Note 2 - Date of Service February 23, 2021 - Glycemic Short BSG Results (Last 24 hours): 02/22/21 02/22/21 02/22/21 10:15 11:04 12:20 Glucose POC Glucose 258 H 224 H 167 H 02/22/21 02/22/21 02/22/21 16:58 20:50 23:57 Glucose POC Glucose 137 H 171 H 109 H 02/23/21 02/23/21 02/23/21 03:57 07:31 08:17 Glucose 136 H POC Glucose 115 H 129 H OUTPATIENT ANTIDIABETIC REGIMEN: * N/A ASSESSMENT: 02/23/21 * BSGs yesterday were 137-171 off insulin infusion. BSGs overnight were 109-1171 and fasting today was 129 mg/dL * Reduce Lantus by 20% to 16 units since BSGs trending down significantly. * Continue Novolog for now. Background * Patient admitted with severe hyperglycemia without metabolic abnormalities. * Insulin infusion ran overnight at less than 1 unit/hr. * Give Lantus 20 units now (1.5 x 0.6 units/hr x 24 hours) and stop insulin infusion ~6 hours after Lantus administration. * Start Novolog stress of 3 for now. Add overnight checks to ensure 24 hour blood glucose control. PLAN FOR INPATIENT GLYCEMIC CONTROL: * Basal insulin * Lantus 16 units SQ x 1 then reassess * Bolus insulin * NovoLog per scale ACHS or Q6hrs while NPO * Goal Range: Low 110 mg/dL - High 140 mg/dL * Correction Factor: 25 mg/dL/unit * Nutritional / Prandial insulin per carb ratio of 1 unit per 9 grams CHO consumed PLAN FOR DISCHARGE: * TBD - HbA1C ordered
[2021-02-23] MEDS: lisinopril 2.5 MG TAB PO SCH (21:43)
[2021-02-24 06:48] LABS: Calcium 9.2 mg/dl (8.5-10.1); Est GFR (African American) 101.6 ml/min; Est GFR (Non-African American) 87.6 ml/min; Potassium 3.7 mmol/L (3.5-5.1)
[2021-02-24] MEDS: buPROPion XL 150 MG TABCR PO SCH ×2 (08:22→21:08)
[2021-02-24] MEDS: ASPIRIN 81 MG ECTAB PO SCH (08:22)
[2021-02-24] MEDS: ATORVASTATIN 10 MG TAB PO SCH (08:22)
[2021-02-24] MEDS: UMECLIDINIUM BROMIDE 62.5MCG/BLISTER 7 PUFFS/INHALER INH SCH (08:23)
[2021-02-24] MEDS: ENOXAPARIN INJ 40 MG/0.4 ML SYR SQ SCH (08:23)
[2021-02-24 08:27] LABS: Estimated Average Glucose > 438 mg/dl; Hemoglobin A1C > 16.9 % (4.5-5.6)
[2021-02-24] MEDS: INSULIN ASPART 100 UNITS/ML 3 ML PEN SC SCH ×4 (08:28→21:09)
[2021-02-24] MEDS ORDERED: INSULIN GLARGINE SOLOSTAR 100 UNITS/ML 3 ML PEN SC ONE (09:00)
--- NOTE | 2021-02-24 15:00 | Pharmacy Report ---
Pharmacy Glycemic Short Note 2 - Date of Service February 24, 2021 - Glycemic Short BSG Results (Last 24 hours): 02/23/21 02/23/21 02/24/21 16:49 20:32 05:22 Glucose 101 H POC Glucose 96 130 H 02/24/21 02/24/21 08:04 12:10 Glucose POC Glucose 123 H 151 H OUTPATIENT ANTIDIABETIC REGIMEN: * N/A ASSESSMENT: 02/24/21 * BSGs yesterday were 888-870-34-130 mg/dL. Patient received 30 units of insulin (Lantus 16 units plus Novolog 14 units). * Fasting today was 123 mg/dL. * Lantus 10 units x 1. * Continue Novolog weight-based stress of 3. 02/23/21 * BSGs yesterday were 137-171 off insulin infusion. BSGs overnight were 109-1171 and fasting today was 129 mg/dL * Reduce Lantus by 20% to 16 units since BSGs trending down significantly. * Continue Novolog for now. Background * Patient admitted with severe hyperglycemia without metabolic abnormalities. * Insulin infusion ran overnight at less than 1 unit/hr. * Give Lantus 20 units now (1.5 x 0.6 units/hr x 24 hours) and stop insulin infusion ~6 hours after Lantus administration. * Start Novolog stress of 3 for now. Add overnight checks to ensure 24 hour blood glucose control. PLAN FOR INPATIENT GLYCEMIC CONTROL: * Basal insulin * Lantus 10 units SQ x 1 then reassess * Bolus insulin * NovoLog per scale ACHS or Q6hrs while NPO * Goal Range: Low 110 mg/dL - High 140 mg/dL * Correction Factor: 30 mg/dL/unit * Nutritional / Prandial insulin per carb ratio of 1 unit per 2 grams CHO consumed PLAN FOR DISCHARGE: * Lantus 10 units SQ once daily in the morning + metformin * Metformin should be started at the time type 2 diabetes is diagnosed unless there are contraindications. Metformin is effective and safe, is inexpensive, and may reduce risk of cardiovascular events and . * B12 supplementation may be necessary with lobsterman metformin use * FDA has revised the label for metformin to reflect its safety in patients with eGFR 30 mL/min or above * Recommend starting: Metformin XR 500mg PO daily with evening meal. Typically the XR formulation of metformin is better tolerated than the immediate release formulation. Continue to titrate metformin dosing upwards as recommended. Dosage increases should be made in increments of 500 mg weekly, up to 2,000 mg/day PO, given in divided doses. Doses above 2000 mg/day may be better tolerated if divided and given 3 times per day with meals. Max: 2,550 mg/day PO, in divided doses * Support Patient Self-Management * Healthy Lifestyle (diet, exercise, and smoking cessation) * Disease self-management (SMBG) * Prevention of complications (BP, Lipid goals, Immunizations) * Consider outpatient Diabetes Self-Management Education & Support
[2021-02-24] MEDS ORDERED: metFORMIN HCL ER 500 MG TABCR PO SCH (16:30)
--- NOTE | 2021-02-24 17:11 | Hospitalist Progress Note ---
Date of Service February 24, 2021 Assessment & Plan (1) Hyperglycemic crisis in diabetes mellitus: Plan: Hyperglycemic hyperosmolar syndrome DM II-- Uncontrolled, New Diagnosis New diagnosis of DM2 given current hemoglobin A1c of 18 history prediabetes with last hemoglobin A1c of 6.4 from 2019 HbA1C ON 02/21/21 IS 18.0 on outpatient labs HbA1C:16.9 Insulin drip discontinued Continue Insulin therapy Monitor blood glucose levels Appreciate pharmacy's help in managing bag machine adjuster consulted-pending Start on Metformin Situational hypertension BP stable Monitor Continue lisinopril COPD H/O Pulmonary nodules No signs of Exacerbation [place] [facility] [place] Hyperlipidemia on Lipitor 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 DVT Px: Lovenox SQ Code Status Full code Admission and Anticipated Discharge Date Admission Date: February 21, 2021 Subjective Patient is seen and examined at bedside No new complaints Denies chest pain, shortness of breath, dizziness, nausea, abdominal pain Blood glucose levels better controlled Review of Systems Review of Systems: All systems reviewed & are unremarkable except as noted in Subjective Physical Exam Physical Exam: Physical Exam: Vitals signs as noted above General Appearance:Thin, frail, no apparent distress Head: normocephalic, Atraumatic Eyes: normal inspection, EOMI Neck: supple, Trachea midline Respiratory/Chest: Normal breath sounds, CTA Cardiovascular: S1, S2, No murmur Abdomen/GI:Soft, Non tender, Bowel sounds present Extremities/Musculoskeletal:normal inspection, no edema Neurologic/Psych:AAOX3, grossly no focal neurological deficits Skin: normal color, warm Results & Data Results & Data ([facility]) Vital Signs (Past 12 Hours) Vital Signs Temp Pulse Resp BP Pulse Ox 02/24/21 16:01 36.3 C L 73 18 127/78 100 02/24/21 07:03 36.4 C L 62 17 102/63 97 Laboratory Results [facility] 02/24/21 05:22 Sodium 138 Potassium 3.7 Chloride 108 H Carbon Dioxide 26 BUN 16 Creatinine 0.88 Glucose 101 H Calcium 9.2
[2021-02-24] MEDS ORDERED: MAGNESIUM HYDROXIDE SUSP 30 ML UDC PO PRN (17:45)
[2021-02-24] MEDS: lisinopril 2.5 MG TAB PO SCH (21:08)
[2021-02-25 07:52] LABS: BUN Creatinine Ratio 23.1 (10-20); Calcium 9.2 mg/dl (8.5-10.1); Creatinine Clr Calc Pharmacy 68.3 ml/min; Est GFR (African American) 101.1 ml/min; Est GFR (Non-African American) 87.2 ml/min
[2021-02-25] MEDS ORDERED: INSULIN GLARGINE SOLOSTAR 100 UNITS/ML 3 ML PEN SC SCH (09:00)
[2021-02-25] MEDS: ENOXAPARIN INJ 40 MG/0.4 ML SYR SQ SCH (09:09)
[2021-02-25] MEDS: ASPIRIN 81 MG ECTAB PO SCH (09:09)
[2021-02-25] MEDS: ATORVASTATIN 10 MG TAB PO SCH (09:09)
[2021-02-25] MEDS: buPROPion XL 150 MG TABCR PO SCH (09:09)
[2021-02-25] MEDS: INSULIN ASPART 100 UNITS/ML 3 ML PEN SC SCH ×2 (09:15→13:13)
[2021-02-25] MEDS: UMECLIDINIUM BROMIDE 62.5MCG/BLISTER 7 PUFFS/INHALER INH SCH (11:22)
[2021-02-25] MEDS ORDERED: INSULIN GLARGINE SOLOSTAR 100 UNITS/ML 3 ML PEN SC STA (12:42)
--- NOTE | 2021-02-25 14:01 | Pharmacy Report ---
Pharmacy Glycemic Short Note 2 - Date of Service February 25, 2021 - Glycemic Short BSG Results (Last 24 hours): 02/24/21 02/24/21 02/25/21 17:21 20:43 06:49 Glucose 144 H POC Glucose 130 H 204 H 02/25/21 02/25/21 08:08 12:08 Glucose POC Glucose 139 H 270 H OUTPATIENT ANTIDIABETIC REGIMEN: * N/A * HbA1c was > 16.9% (02/24/21) ASSESSMENT: 02/25: * Harjinder received a total of 24 units of insulin yesterday * 10 units basal + 14 units bolus * BSGs were: 211-644-906-204 mg/dL - acceptable * Fasting BSG this AM was 139 mg/dL * Likely related to basal deficiency from previous day's Lantus dose * Will increase Lantus back to once daily equivalent of weight/stress of 2 for which patient did well on. Patient already received 15 units this AM so an additional 5 units were given at lunchtime. Monitor BSGs closely with addition of Metformin XR. * Postprandial hyperglycemia noted at lunch today: 270 mg/dL * Tightened both Novolog parameters for the time being. May be too aggressive and need loosened throughout the evening. 02/24: * BSGs yesterday were 028-933-76-130 mg/dL. Patient received 30 units of insulin (Lantus 16 units plus Novolog 14 units). * Fasting today was 123 mg/dL. * Lantus 10 units x 1. * Continue Novolog weight-based stress of 3. 02/23: * BSGs yesterday were 137-171 off insulin infusion. BSGs overnight were 109-1171 and fasting today was 129 mg/dL * Reduce Lantus by 20% to 16 units since BSGs trending down significantly. * Continue Novolog for now. PLAN FOR INPATIENT GLYCEMIC CONTROL: * Basal insulin - increased * Lantus 20 units SC x 1 * Bolus insulin - tightened * NovoLog per scale ACHS or Q6hrs while NPO * Goal Range: Low 110 mg/dL - High 140 mg/dL * Correction Factor: 25 mg/dL/unit * Nutritional / Prandial insulin per carb ratio of 1 unit per 6 grams CHO consumed PLAN FOR DISCHARGE: * Lantus 20 units SQ once daily in the morning * Metformin should be started at the time type 2 diabetes is diagnosed unless there are contraindications. Metformin is effective and safe, is inexpensive, and may reduce risk of cardiovascular events and . * B12 supplementation may be necessary with scanner supervisor metformin use * FDA has revised the label for metformin to reflect its safety in patients with eGFR 30 mL/min or above * Recommend starting: Metformin XR 500mg PO daily with evening meal. Typically the XR formulation of metformin is better tolerated than the immediate release formulation. Continue to titrate metformin dosing upwards as recommended. Dosage increases should be made in increments of 500 mg weekly, up to 2,000 mg/day PO, given in divided doses. Doses above 2000 mg/day may be better tolerated if divided and given 3 times per day with meals. Max: 2,550 mg/day PO, in divided doses * Support Patient Self-Management * Healthy Lifestyle (diet, exercise, and smoking cessation) * Disease self-management (SMBG) * Prevention of complications (BP, Lipid goals, Immunizations) * Consider outpatient Diabetes Self-Management Education & Support
--- NOTE | 2021-02-25 14:02 | Hospitalist Progress Note ---
Date of Service February 25, 2021 Assessment & Plan (1) Hyperglycemic crisis in diabetes mellitus: Plan: Hyperglycemic hyperosmolar syndrome DM II-- Uncontrolled, New Diagnosis New diagnosis of DM2 given current hemoglobin A1c of 18 history prediabetes with last hemoglobin A1c of 6.4 from 2019 HbA1C ON 02/21/21 IS 18.0 on outpatient labs HbA1C:16.9 Insulin drip discontinued Continue Insulin therapy Monitor blood glucose levels Appreciate pharmacy's help in managing clinical nurse educator consulted-pending Continue Metformin Needs follow up with PCP in 1 week Situational hypertension BP stable Monitor Continue lisinopril COPD H/O Pulmonary nodules No signs of Exacerbation Follows with [facility] [place] Hyperlipidemia on Lipitor 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 DVT Px: Lovenox SQ Code Status Full code Admission and Anticipated Discharge Date Admission Date: February 21, 2021 Subjective Patient is seen and examined at bedside clinical nurse educator teaching this morning No new complaints Eager to get discharged Denies chest pain, shortness of breath, dizziness, nausea, abdominal pain Review of Systems Review of Systems: All systems reviewed & are unremarkable except as noted in Subjective Physical Exam Physical Exam: Physical Exam: Vitals signs as noted above General Appearance:Thin, frail, no apparent distress Head: normocephalic, Atraumatic Eyes: normal inspection, EOMI Neck: supple, Trachea midline Respiratory/Chest: Normal breath sounds, CTA Cardiovascular: S1, S2, No murmur Abdomen/GI:Soft, Non tender, Bowel sounds present Extremities/Musculoskeletal:normal inspection, no edema Neurologic/Psych:AAOX3, grossly no focal neurological deficits Skin: normal color, warm Results & Data Results & Data ([facility]) Vital Signs (Past 12 Hours) Vital Signs Temp Pulse Resp BP Pulse Ox 02/25/21 07:35 36.5 C 67 18 95/62 L 99 Laboratory Results [facility] 02/25/21 06:49 Sodium 136 Potassium 4.0 Chloride 106 Carbon Dioxide 24 BUN 21 H Creatinine 0.89 Glucose 144 H Calcium 9.2
--- NOTE | 2021-02-25 14:11 | Discharge Summary ---
Date of Service February 25, 2021 Admission HPI Per Admitting Provider History obtained from patient, friend , and records. Medical history significant for COPD, history pulmonary nodules, hyperlipidemia, prediabetes as per records, ongoing tobacco abuse. Patient being more frequently the last few weeks. No chest pain, no S OB, no abdominal pain. Appetite okay. Outpatient labs ordered by PCP today. Serum glucose noted to be 700s. Hemoglobin A1c noted to be 18. Patient directed to the ER by PCP. IV insulin initiated at the ER. 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 Admission Exam Per Admitting Provider Physical Exam Physical Exam: GENERAL: Comfortable, pleasant, slightly hard of hearing, no respiratory distress SKIN: Normal color, warm HEENT: [place] palpebral conjunctivae, no ptosis, dry buccal mucosa NECK : Supple, no tenderness CHEST : Decreased breath sounds, no tenderness HEART : RRR, no obvious murmurs ABDOMEN: Some distention, nontender EXTREMITIES : No LE swelling/tenderness, no other conspicuous deformities noted NEUROLOGIC : Coherent, no facial asymmetry, slightly hard of hearing, no other gross focality Principal Diagnosis Hyperglycemic hyperosmolar syndrome Uncontrolled diabetes mellitus Discharge Data Allergies Allergy/AdvReac Type Severity Reaction Status Date / Time No Known Allergies Allergy Unverified 02/21/21 20:17 Consultations 02/21/21 19:46 ED Decision to Admit Stat Diabetes Follow up Diabetes Follow-up Needed for HgbA1c >9%,Newly Diagnosed Diabetes Hospital Course (1) Hyperglycemic crisis in diabetes mellitus: Hyperglycemic hyperosmolar syndrome DM II-- Uncontrolled, New Diagnosis New diagnosis of DM2 given current hemoglobin A1c of 18 history prediabetes with last hemoglobin A1c of 6.4 from 2019 HbA1C ON 02/21/21 IS 18.0 on outpatient labs HbA1C:16.9 Insulin drip discontinued Continue Insulin therapy Monitor blood glucose levels Appreciate pharmacy's help in managing central office technician consulted-pending Continue Metformin Needs follow up with PCP in 1 week Situational hypertension BP stable Monitor Continue lisinopril COPD H/O Pulmonary nodules No signs of Exacerbation Follows with [facility] Pulmonology Hyperlipidemia on Lipitor 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 DVT Px: Lovenox SQ Code Status Full code Total Time Total Time Spent Total Time Spent (In Minutes): 39 minutes Discharge Plan Discharge Items Patient Disposition: Home - Home Health Services Reason For Visit: HYPERGLYCEMIC CRISIS Discharge Diagnosis: Hyperglycemic hyperosmolar syndrome Uncontrolled diabetes mellitus Activity: Per Instructions section Exercise/Sports: Gradually increase as tolerated Non-emergency contact: Primary Care Provider and Specialist Call non-emergency contact if: you have any medication questions, your symptoms worsen and you have a fever Follow-up/Referrals: Celsa Mcgovern DO [Primary Care Provider] - 02/28/21 2:20 pm Diet: Carb Consistent or DM2 and Heart Healthy Addtl Attending Provider Instructions: Follow-up with your primary care physician Dr. Mcgovern on Feb 28, 2021 at 2:20PM Consider following up with your web assistant for management of diabetes mellitus. Follow-up with your primary care physician for further adjustment of your diabetic medications as needed. Seek immediate medical attention if your symptoms reoccur or worsen Please take all medications as instructed on discharge list below. Please call if you have any questions or problems. You can reach a [facility] hospitalist on duty at [facility] 24 hours a day by calling [phone] Pending Studies at Discharge: No Stand-Alone Forms: [facility] [employer]!, Smoking Cessation Medications and DC Order Prescriptions: New lisinopril 2.5 mg Tablet 2.5 mg PO HS Qty: 30 RF: 1 Lantus Solostar U-100 Insulin 100 unit/mL (3 mL) Insulin Pen 10 unit SC DAILY 30 Days Qty: 3 RF: 1 metformin 500 mg Tablet Extended Release 24 Hr 500 mg PO QDD Qty: 30 RF: 1 (DME) pen needle, diabetic [Pen Needle] 32 gauge x 5/32" needle See Rx Instructions .Route Qty: 100 RF: 1 (DME) lancets 33 gauge misc See Rx Instructions .Route Qty: 100 RF: 1 (DME) OneTouch Verio test strips Strip See Rx Instructions .Route Qty: 100 RF: 1 Continued atorvastatin [Lipitor] 10 mg tablet 10 mg PO DAILY RF: 0 omega-3 fatty acids 1,000 mg capsule 1,000 mg PO DAILY RF: 0 aspirin 81 mg tablet,delayed release (DR/EC) 81 mg PO DAILY RF: 0 albuterol sulfate [ProAir HFA] 90 mcg/actuation HFA aerosol inhaler 2 puff INH Q6H PRN (Reason: shortness of breath or wheezing) Qty: 18 RF: 3 Spiriva Respimat 2.5 mcg/actuation mist 2 puff INH DAILY Qty: 4 RF: 12 bupropion HCl 150 mg tablet extended release 24 hr 150 mg PO BID Qty: 60 RF: 11 oxycodone-acetaminophen [Percocet] 5-325 mg Tablet 1 tab PO Q6H PRN (Reason: Pain) RF: 0 nicotine 21 mg/24 hr Patch 24 Hour 1 patch TRANSDERMAL DAILY RF: 0 Discharge Orders: Discharge Order (Routine); Ordered 02/25/21 Ordered By: Krish Conde/Other Patient Handouts: Long-Term Complications of Diabetes, High Blood Sugar (Hyperglycemia), Hypoglycemia (Low Blood Sugar), Managing Type 2 Diabetes, Diabetes: Inspecting Your Feet, Diabetes: Sick-Day Plan, Diabetes: Meal Planning, Understanding Type 2 Diabetes Admission Data Admit Date/Time: 02/21/21 21:01 Attending Provider: Krish Schuler Admit Provider: Erik Suresh Primary Care Provider: Celsa Mcgovern Other Providers: Erik Suresh Other Interventions: Discharge Summary Assessment (RN) Last Done: 02/25/21 14:27
== END 2021-02-25 14:55 | disposition home health service (06) | DRG 637 ==
LOC: ED 18:11 → 3E 21:01